=== PATIENT | female | born 1980 | race Caucasian/White ===

== ENCOUNTER 2018-06-11 10:36 | Outpatient (CLI) | payer OTHER ==
[~2018-06-11 10:36] MED LIST: SYNTHROID100 MCG; TRICOR48 MG; VITAMIN A & D113 GM
== END 2018-06-11 10:51 | disposition home or self-care (01) ==
LOC: SONOGRAMA 10:36
DX: L04.0 Acute lymphadenitis of face, head and neck (principal)